=== PATIENT | male | born 1980 | race Caucasian/White ===

== ENCOUNTER 2017-06-14 15:28 | Inpatient (IN) | payer OTHER ==
[~2017-06-14] VITALS: Ht 182.9 cm; Wt 78.0 kg
[~2017-06-14 15:28] MED LIST: ATARAX,VISTARIL25 MG PO; NOHOMEMEDS; OCUFLOX 0.100 DROP/5 BOTH EYES; TRAMADOL HCL50 MG PO
[2017-06-14 16:26] LABS: HEMATOCRIT 48.8 % (38.0-50.0); HEMOGLOBIN 17.2 G/DL (12.5-16.6); MCH 30.7 PG (29.0-34.0); MCHC 35.2 G/DL (30.0-36.0); RBC DIS.WIDTH-SD 38.2 % (39-53); RED BLOOD COUNT 5.61 M/uL (4.00-5.50); WHITE BLOOD COUNT 16.7 K/uL (4.1-10.2)
[2017-06-14 16:30] LABS: APPEARANCE CLEAR ((CLEAR)); BILIRUBIN NEGATIVE; BLOOD NEGATIVE; COLOR YELLOW ((YELLOW)); GLUCOSE (STRIP) NEGATIVE; KETONES NEGATIVE; LEUKOCYTES NEGATIVE; NITRITE NEGATIVE; PROTEIN (STRIP) NEGATIVE; SPECIFIC GRAVITY 1.016 (1.000-1.030); UCUL ADDED? NO; UROBILINOGEN 0.2 MG/DL (0.2-1.0)
[2017-06-14 17:00] LABS: ALBUMIN 4.8 G/DL (3.2-4.8); ALKALINE PHOSPHATASE 50 IU/L (3-129); ALT (GPT) 31 IU/L (3-49); AST (GOT) 21 IU/L (2-34); CHLORIDE 100 MEQ/L (99-109); CREATININE 0.9 MG/DL (0.6-1.3); GFR ESTIMATE (CALCULATED) > 59 mL/min/ (58.99-99999); GLUCOSE 115 mg/dL (70-99); POTASSIUM 3.6 MEQ/L (3.7-5.4); SODIUM 137 MEQ/L (136-147); TOTAL BILIRUBIN 0.7 MG/DL (0.0-1.0); TOTAL PROTEIN 7.5 G/DL (6.4-8.3); UREA NITROGEN (BUN) 11 mg/dL (9-23)
[2017-06-14 17:20] LABS: PLAT.SUFFICIENCY ADEQUATE; PLATELET COUNT 242 K/uL (156-360)
[2017-06-14 18:11] LABS: LIPASE 15 U/L (1.0-51.0)
[2017-06-15 07:57] LABS: BASOPHIL (%) 0.3 % (0-1); EOSINOPHIL (%) 6.5 % (0-5); EOSINOPHIL COUNT 0.8 K/uL (0-0.3); HEMATOCRIT 46.7 % (38.0-50.0); HEMOGLOBIN 16.3 G/DL (12.5-16.6); IMMATURE GRANULOCYTE (%) 0.4 % (0.0-0.7); LYMPHOCYTE (%) 21.3 % (15-42); LYMPHOCYTE COUNT 2.5 K/uL (1.0-2.8); MCH 30.5 PG (29.0-34.0); MCHC 34.9 G/DL (30.0-36.0); MCV 87.5 FL (86-99); MONOCYTE COUNT 0.9 K/uL (0-0.8); NEUTROPHIL (%) 63.5 % (45-76); NEUTROPHIL COUNT 7.3 K/uL (1.8-6.4); PLATELET COUNT 238 K/uL (156-360); RBC DIS.WIDTH-SD 38.4 % (39-53); RED BLOOD COUNT 5.34 M/uL (4.00-5.50); WHITE BLOOD COUNT 11.5 K/uL (4.1-10.2)
[2017-06-15 08:29] LABS: ALBUMIN 4.3 G/DL (3.2-4.8); CHLORIDE 103 MEQ/L (99-109); GFR ESTIMATE (CALCULATED) > 59 mL/min/ (58.99-99999); GLUCOSE 101 mg/dL (70-99); SODIUM 138 MEQ/L (136-147); UREA NITROGEN (BUN) 9 mg/dL (9-23)
[2017-06-15 08:32] LABS: POTASSIUM 4.9 MEQ/L (3.7-5.4)
[2017-06-15 15:30] VITALS: BP 111/72
[2017-06-15 19:48] VITALS: BP 115/79
[2017-06-15 23:23] VITALS: BP 115/73
[2017-06-16 03:51] VITALS: BP 108/66
[2017-06-16 06:30] LABS: HEMATOCRIT 43.7 % (38.0-50.0); HEMOGLOBIN 15.5 G/DL (12.5-16.6); MCH 30.8 PG (29.0-34.0); MCHC 35.5 G/DL (30.0-36.0); MCV 86.9 FL (86-99); PLATELET COUNT 263 K/uL (156-360); RBC DIS.WIDTH-CV 11.9 % (11.8-14.6); RBC DIS.WIDTH-SD 37.7 % (39-53); RED BLOOD COUNT 5.03 M/uL (4.00-5.50); WHITE BLOOD COUNT 15.3 K/uL (4.1-10.2)
[2017-06-16 06:49] LABS: CHLORIDE 103 MEQ/L (99-109); GFR ESTIMATE (CALCULATED) > 59 mL/min/ (58.99-99999); GLUCOSE 115 mg/dL (70-99); POTASSIUM 4.4 MEQ/L (3.7-5.4); SODIUM 138 MEQ/L (136-147); UREA NITROGEN (BUN) 11 mg/dL (9-23)
[2017-06-16 08:06] VITALS: BP 110/71
[2017-06-16 16:26] VITALS: BP 120/70
[2017-06-16 23:46] VITALS: BP 106/70
[2017-06-17 06:19] LABS: BASOPHIL (%) 0.6 % (0-1); BASOPHIL COUNT 0.1 K/uL (0-0.1); EOSINOPHIL (%) 5.7 % (0-5); EOSINOPHIL COUNT 0.6 K/uL (0-0.3); HEMATOCRIT 44.2 % (38.0-50.0); HEMOGLOBIN 15.1 G/DL (12.5-16.6); IMMATURE GRANULOCYTE (%) 0.5 % (0.0-0.7); LYMPHOCYTE COUNT 3.4 K/uL (1.0-2.8); MCH 30.3 PG (29.0-34.0); MCHC 34.2 G/DL (30.0-36.0); MCV 88.6 FL (86-99); MONOCYTE (%) 7.5 % (3-12); MONOCYTE COUNT 0.8 K/uL (0-0.8); NEUTROPHIL (%) 54.7 % (45-76); NEUTROPHIL COUNT 5.9 K/uL (1.8-6.4); PLATELET COUNT 213 K/uL (156-360); RBC DIS.WIDTH-CV 12.1 % (11.8-14.6); RBC DIS.WIDTH-SD 38.6 % (39-53); RED BLOOD COUNT 4.99 M/uL (4.00-5.50); WHITE BLOOD COUNT 10.8 K/uL (4.1-10.2)
[2017-06-17 07:39] VITALS: BP 107/69
[2017-06-17] MEDS ORDERED: AUGMENTIN875 MG PO (12:13)
[2017-06-17] MEDS ORDERED: FLAGYL500 MG PO (12:14)
[2017-06-17] MEDS ORDERED: ULTRAM50 MG PO (12:25)
== END 2017-06-17 13:55 | disposition home or self-care (01) | DRG 392 ==
LOC: EME 15:28 → EDOF 23:23 → ENRESERV 23:26 → 2EAST 06-15 15:28
PROVIDERS: Hospitalist; Internal Medicine Gastroenterology
DX: K57.32 Diverticulitis of large intestine without perforation or abscess without bleeding (principal); E87.6 Hypokalemia
CPT/HCPCS: 74177; 80048; 80053; 80069; 81003; 83690; 85025; 85027; 99281; 99285; J0696; J0744; J1200; J1650; J2405; J2543; J2930; J3010; J7030; J7050; S0030

== ENCOUNTER 2017-09-14 22:23 | Emergency (ER) | payer OTHER ==
[~2017-09-14] VITALS: Ht 182.9 cm; Wt 78.6 kg
[~2017-09-14 22:23] MED LIST changes: +AUGMENTIN875 MG PO; +FLAGYL500 MG PO; +ULTRAM50 MG PO
[2017-09-15 01:00] VITALS: BP 134/91
[2017-09-15] MEDS ORDERED: KEFLEX500 MG PO (01:02)
== END 2017-09-15 01:31 | disposition home or self-care (01) ==
LOC: EME 22:23
DX: M79.5 Residual foreign body in soft tissue (principal); Z88.5 Allergy status to narcotic agent
CPT/HCPCS: 73130; 99281; 99283